=== PATIENT | male | born 1990 | race African-American/Black ===

== ENCOUNTER 2017-08-09 16:06 | Emergency (ER) | payer MEDICAID ==
[2017-08-09 16:56] LABS: BASOPHILS 0.3 % (0-2); EOSINOPHILS 0.6 % (0-7); HEMATOCRIT 51.2 % (42.0-54.0); IMMATURE GRANULOCYTES 0.2 % (0-5); LYMPHOCYTES 40.9 % (15-50); MCH 31.2 pg (26.0-34.0); MCHC 35.2 g/dL (31.0-37.0); MCV 88.7 fL (80.0-100.0); MONOCYTES 8.8 % (2-11); NEUTROPHILS 49.2 % (40-80); PLATELET COUNT 278 10x3/uL (130-400); RBC 5.77 10x6/uL (4.20-6.10); RDW 12.7 % (11.5-14.5); WBC 6.4 10x3/uL (4.8-10.8)
[2017-08-09 17:03] LABS: ALBUMIN 4.6 g/dL (3.4-5.0); ANION GAP 14.8 mmol/L (8-16); BILIRUBIN - TOTAL 0.59 mg/dL (0.2-1.3); CALCIUM 9.3 mg/dL (8.5-10.1); CARBON DIOXIDE 29.7 mmol/L (21.0-32.0); CREATININE - SERUM 1.4 mg/dL (0.6-1.3); POTASSIUM - SERUM 3.5 mmol/L (3.5-5.1); PROTEIN - SERUM 9.1 g/dL (6.4-8.2)
[2017-08-09 19:01] LABS: APPEARANCE CLEAR (CLEAR); BILIRUBIN NEGATIVE (NEGATIVE); COLOR YELLOW (YELLOW); GLUCOSE NEGATIVE (NEGATIVE); KETONE MODERATE mg/dL (NEGATIVE); NITRITE NEGATIVE (NEGATIVE); PROTEIN TRACE mg/dL (NEGATIVE); UROBILINOGEN NORMAL (NORMAL)
[2017-08-09 19:02] LABS: BACTERIA FEW /hpf (NONE SEEN); MUCUS <1+ /lpf (NONE SEEN)
== END 2017-08-09 21:01 | disposition home or self-care (01) ==
LOC: D.ER 16:06
PROVIDERS: Family Medicine
DX: K59.00 Constipation, unspecified (principal); R11.10 Vomiting, unspecified

== ENCOUNTER 2019-05-09 10:37 | Emergency (ER) | payer SELFPAY ==
[~2019-05-09] VITALS: Ht 172.7 cm; Wt 86.4 kg
[2019-05-09 10:43] VITALS: BP 151/85; Ht 172.7 cm; Wt 86.4 kg
[2019-05-09] MEDS ORDERED: IBUPROFEN800 MG PO (12:40)
== END 2019-05-09 13:45 | disposition home or self-care (01) ==
LOC: D.ER 10:37
DX: S63.602A Unspecified sprain of left thumb, initial encounter (principal); X58.XXXA Exposure to other specified factors, initial encounter

== ENCOUNTER 2020-04-15 23:55 | Emergency (ER) | payer SELFPAY ==
[~2020-04-15] VITALS: Ht 172.7 cm; Wt 93.2 kg
[~2020-04-15 23:55] MED LIST: IBUPROFEN800 MG PO
[2020-04-16 00:04] VITALS: BP 161/100; Ht 172.7 cm; Wt 93.2 kg
[2020-04-16 00:40] LABS: BASOPHILS 0.4 % (0-2); EOSINOPHILS 4.8 % (0-7); HEMATOCRIT 44.5 % (42.0-54.0); HEMOGLOBIN 14.8 g/dL (13.5-17.5); IMMATURE GRANULOCYTES 0.1 % (0-5); LYMPHOCYTES 50.1 % (15-50); MCH 29.7 pg (26.0-34.0); MCHC 33.3 g/dL (31.0-37.0); MCV 89.4 fL (80.0-100.0); MEAN PLATELET VOLUME 8.5 fL (7.4-10.4); MONOCYTES 7.1 % (2-11); NEUTROPHILS 37.5 % (40-80); PLATELET COUNT 265 10x3/uL (130-400); RBC 4.98 10x6/uL (4.20-6.10); RDW 13.3 % (11.5-14.5); WBC 6.9 10x3/uL (4.8-10.8)
[2020-04-16 00:47] LABS: ANION GAP 7.6 mmol/L (8-16); CALCIUM 9.1 mg/dL (8.5-10.1); CARBON DIOXIDE 31.1 mmol/L (21.0-32.0); CREATININE - SERUM 1.3 mg/dL (0.6-1.3); POTASSIUM - SERUM 3.7 mmol/L (3.5-5.1)
[2020-04-16 00:48] LABS: APTT 27.8 SECONDS (22.8-39.4); INR 0.94 (0.85-1.17); PROTIME 12.6 SECONDS (11.6-15.0)
[2020-04-16 00:53] LABS: BILIRUBIN - TOTAL 0.21 mg/dL (0.2-1.3); PROTEIN - SERUM 8.3 g/dL (6.4-8.2)
[2020-04-16] MEDS ORDERED: PROTONIX40 MG PO (02:54)
[2020-04-16 03:04] LABS: BILIRUBIN NEGATIVE (NEGATIVE); KETONE NEGATIVE (NEGATIVE); NITRITE NEGATIVE (NEGATIVE); UROBILINOGEN NORMAL mg/dL (< 2)
[2020-04-16 03:06] LABS: UDS - AMPHET NEGATIVE QUAL (NEGATIVE); UDS - BARB NEGATIVE QUAL (NEGATIVE); UDS - BENZO NEGATIVE QUAL (NEGATIVE); UDS - COCAINE NEGATIVE QUAL (NEGATIVE); UDS - OPIATE NEGATIVE QUAL (NEGATIVE); UDS - PCP NEGATIVE QUAL (NEGATIVE); UDS - THC POSITIVE QUAL (NEGATIVE)
== END 2020-04-16 04:06 | disposition home or self-care (01) ==
LOC: D.ER 23:55
PROVIDERS: Emergency Medicine
DX: R55 Syncope and collapse (principal); S09.90XA Unspecified injury of head, initial encounter; S01.01XA Laceration without foreign body of scalp, initial encounter; Z87.898 Personal history of other specified conditions; W19.XXXA Unspecified fall, initial encounter; Y93.9 Activity, unspecified; Y92.9 Unspecified place or not applicable